=== PATIENT | female | born 1975 | race Caucasian/White ===

== ENCOUNTER 2016-12-09 10:28 | Emergency (ER) | payer OTHER ==
[~2016-12-09] VITALS: Ht 175.3 cm; Wt 90.0 kg
[2016-12-09 10:30] VITALS: BP 136/81; PULSE 83; RESP 16; TEMP 98.3; O2SAT 100
[2016-12-09] MEDS ORDERED: CLAR10CA3 PO (10:45)
[2016-12-09] MEDS ORDERED: NEXI20CA PO (10:45)
--- NOTE | 2016-12-09 10:58 | PD ---
HPI Chief Complaint: Syncope/Near-Syncope Time Seen by Provider: 10:54 Travel History International Travel<30 days: No Contact w/Intl Traveler<30days: No Traveled to known affect area: No History of Present Illness HPI Patient presents with complaints of a near syncopal episode this morning after eating breakfast. Reports a long history of near syncope and syncope with negative evaluations in the past. Reports that most if not all of these episodes have occurred secondary to hypoglycemia. Patient does report a family history and personal history of hypoglycemia. Reports mild nausea without vomiting. Denies any chest pain or palpitations. Denies any shortness of breath urinary or bowel symptoms. Eyes . PFSH Past Medical History Diminished Hearing: No GERD: Yes Tetanus Vaccination: Unknown ?: Not LMP: 12/07/2016 Past Surgical History Other Surgery: Yes (LEFT SX) Social History Alcohol Use: Yes (RARE) Tobacco Use: No Substance Use: No Allergies-Medications (Allergen,Severity, Reaction): Coded Allergies: Penicillin (Verified Allergy, Intermediate, HIVES, 12/09/16) Reported Meds & Prescriptions Reported Meds & Active Scripts Active Reported Claritin (Loratadine) 10 Mg Cap 10 Mg PO DAILY Nexium (Esomeprazole DR) 20 Mg Capdr 20 Mg PO DAILY Review of Systems General / Constitutional: No: Fever Eyes: No: Visual changes HENT: No: Headaches Cardiovascular: No: Chest Pain or Discomfort Respiratory: No: Shortness of Breath Gastrointestinal: No: Abdominal Pain Genitourinary: No: Dysuria Musculoskeletal: No: Pain Skin: No Rash Neurologic: Positive: Dizziness Psychiatric: No: Depression Endocrine: No: Polydipsia Hematologic/Lymphatic: No: Easy Bruising Physical Exam Narrative GENERAL: Well-nourished, well-developed patient. SKIN: Focused skin assessment warm/dry. HEAD: Normocephalic. EYES: No scleral icterus. No injection or drainage. NECK: Supple, trachea midline. No JVD or lymphadenopathy. CARDIOVASCULAR: Regular rate and rhythm without murmurs, gallops, or rubs. RESPIRATORY: Breath sounds equal bilaterally. No accessory muscle use. GASTROINTESTINAL: Abdomen soft, non-tender, nondistended. MUSCULOSKELETAL: No cyanosis, or edema. BACK: Nontender without obvious deformity. No CVA tenderness. Data Data Last Documented VS Vital Signs Date Time Temp Pulse Resp B/P Pulse Ox O2 Delivery O2 Flow Rate FiO2 7/9/17 11:06 16 100 Room Air 12/09/16 11:06 88 130/66 82 142/69 83 136/69 12/09/16 10:30 98.3 Orders Electrocardiogram (12/09/16 10:54) Complete Blood Count With Diff (12/09/16 10:54) Comprehensive Metabolic Panel (12/09/16 10:54) Urinalysis - C+S If Indicated (12/09/16 10:54) Ct Brain W/O Iv Contrast(Rout) (12/09/16 10:54) Blood Glucose (12/09/16 10:54) Ecg Monitoring (12/09/16 10:54) Iv Access Insert/Monitor (12/09/16 10:54) Oximetry (12/09/16 10:54) Meclizine (Antivert) (12/09/16 11:00) Sodium Chloride 0.9% Flush (Ns Flush) (12/09/16 11:00) Orthostatic Vital Signs (12/09/16 10:54) Ondansetron Inj (Zofran Inj) (12/09/16 11:00) Sodium Chlor 0.9% 1000 Ml Inj (Ns 1000 M (12/09/16 11:00) Labs Laboratory Tests Test 12/09/16 10:50 White Blood Count 8.2 TH/MM3 Red Blood Count 4.17 MIL/MM3 Hemoglobin 12.8 GM/DL Hematocrit 38.2 % Mean Corpuscular Volume 91.5 FL Mean Corpuscular Hemoglobin 30.7 PG Mean Corpuscular Hemoglobin 33.6 % Concent Red Cell Distribution Width 12.6 % Platelet Count 291 TH/MM3 Mean Platelet Volume 7.5 FL Neutrophils (%) (Auto) 73.2 % Lymphocytes (%) (Auto) 17.6 % Monocytes (%) (Auto) 5.1 % Eosinophils (%) (Auto) 0.6 % Basophils (%) (Auto) 3.5 % Neutrophils # (Auto) 6.1 TH/MM3 Lymphocytes # (Auto) 1.4 TH/MM3 Monocytes # (Auto) 0.4 TH/MM3 Eosinophils # (Auto) 0.0 TH/MM3 Basophils # (Auto) 0.3 TH/MM3 CBC Comment DIFF FINAL Differential Comment Urine Collection Type CLEAN CATCH Urine Color STRAW Urine Turbidity CLEAR Urine pH 5.5 Urine Specific Pepin 1.004 Urine Protein NEG mg/dL Urine Glucose (UA) NEG mg/dL Urine Ketones NEG mg/dL Urine Occult Blood SMALL Urine Nitrite NEG Urine Bilirubin NEG Urine Leukocyte Esterase NEG Urine RBC 4-9 /hpf Urine Squamous Epithelial 0-5 /hpf Cells Microscopic Urinalysis Comment CULT NOT INDICATED Urine Collection Time 10:50 Sodium Level 141 MEQ/L Potassium Level 3.8 MEQ/L Chloride Level 107 MEQ/L Carbon Dioxide Level 26.6 MEQ/L Anion Gap 7 MEQ/L Blood Urea Nitrogen 16 MG/DL Creatinine 0.79 MG/DL Estimat Glomerular Filtration 79 ML/MIN Rate Random Glucose 98 MG/DL Calcium Level 8.5 MG/DL Total Bilirubin 0.3 MG/DL Aspartate Amino Transf 21 U/L (AST/SGOT) Alanine Aminotransferase 27 U/L (ALT/SGPT) Alkaline Phosphatase 81 U/L Total Protein 7.6 GM/DL Albumin 3.8 GM/DL [facility] Medical Decision Making Medical Screen Exam Complete: Yes Emergency Medical Condition: Yes Differential Diagnosis Syncope, near-syncope, atypical migraines, vertigo, dizziness, hypoglycemia Narrative Course Assessment and plan discussed with patient and roommate at bedside. Random blood sugar on arrival 125. EKG reveals sinus rhythm rate of 75. Orthostatics within normal limits. Last [address] 12/09/16 1054 Signed Impressions: Service Date/Time: Friday, December 09, 2016 11:19 - CONCLUSION: Normal examination. Edgar Ascencio MD Diagnosis Primary Impression: Near syncope Patient Instructions: General Instructions Additional Instructions: Encouraged rest and fluids. Encouraged frequent small meals. Encouraged to follow-up with PCP for further workup. Return to the emergency room with any change in symptoms. Anti-emetic as needed Med/Other Pt SpecificInfo: Prescription(s) given Scripts Promethazine (Phenergan)25 Mg Awlurr41.5 Mg PO Q6H PRN (NAUSEA OR VOMITING) #10 TAB Ref 0 Prov:Nolan Hernandez MD 12/09/16 Disposition: 01 DISCHARGE HOME Condition: Good Nolan Hernandez MD Dec 09, 2016 10:58
[2016-12-09] MEDS ORDERED: MECLIZINE HCL 25 MG TAB PO ONE (11:00)
[2016-12-09] MEDS ORDERED: SODIUM CHLOR 0.9% 1000 ML INJ 1,000 ML IV ONE (11:00)
[2016-12-09] MEDS ORDERED: ONDANSETRON HCL 4 MG/2 ML VIAL IV PUSH ONE (11:00)
[2016-12-09] MEDS ORDERED: SODIUM CHLORIDE 0.9% FLUSH 10 ML FLUSH IVF PRN (11:00)
[2016-12-09 11:03] LABS: AUTOMATED NEUTROPHIL # 6.1 TH/MM3 (1.8-7.7); BASOPHIL # 0.3 TH/MM3 (0-0.2); BASOPHIL % 3.5 % (0.0-2.0); EOSINOPHIL % 0.6 % (0.0-4.0); HEMATOCRIT 38.2 % (35.0-46.0); HEMO FLAGS DIFF FINAL; LYMPH % 17.6 % (9.0-44.0); LYMPHOCYTE # 1.4 TH/MM3 (1.0-4.8); MEAN CELL VOLUME 91.5 FL (80.0-100.0); MEAN CORPUSCULAR HEMOGLOBIN 30.7 PG (27.0-34.0); MEAN CORPUSCULAR HGB CONC 33.6 % (32.0-36.0); MONO % 5.1 % (0.0-8.0); NEUT % 73.2 % (16.0-70.0); PLATELET COUNT 291 TH/MM3 (150-450); RED BLOOD COUNT 4.17 MIL/MM3 (4.00-5.30); RED CELL DISTRIBUTION WIDTH 12.6 % (11.6-17.2); WHITE BLOOD COUNT 8.2 TH/MM3 (4.0-11.0)
[2016-12-09 11:04] LABS: BLOOD, URINE SMALL (NEG); GLUCOSE,URINE NEG (NEG); KETONE, URINE NEG (NEG); NITRITE,URINE NEG (NEG); PH, URINE 5.5 (5.0-8.5)
[2016-12-09 11:06] VITALS: BP_SYST 130; BP_SYST 136; BP_SYST 142; BP_DIAS 66; BP_DIAS 69; RESP 16; RESP 17; O2SAT 100
[2016-12-09 11:13] LABS: COMMENT (UR) CULT NOT INDICATED; CULTURE IF INDICATED CULT NOT INDICATED; METHOD OF COLLECTION CLEAN CATCH; SQUAMOUS EPITHELIAL CELL URINE 0-5 /hpf (0-5); URINE COLOR STRAW (YELLW/STRAW)
[2016-12-09 11:14] LABS: CHLORIDE 107 MEQ/L (98-107); POTASSIUM 3.8 MEQ/L (3.5-5.1); SODIUM (NA) 141 MEQ/L (136-145)
[2016-12-09 11:18] LABS: ANION GAP 7 MEQ/L (5-15); BICARBONATE 26.6 MEQ/L (21.0-32.0); BLOOD UREA NITROGEN 16 MG/DL (7-18)
[2016-12-09 11:21] LABS: ALT (GPT) 27 U/L (10-53); AST (GOT) 21 U/L (15-37); GLOMERULAR FILTRATION RATE 79 ML/MIN (>89)
[2016-12-09 11:22] LABS: TOTAL BILIRUBIN ADULT 0.3 MG/DL (0.2-1.0)
[2016-12-09 11:24] LABS: ALKALINE PHOSPHATASE 81 U/L (45-117)
--- NOTE | 2016-12-09 11:37 | RADRPT ---
EXAM DATE/TIME: 12/09/2016 11:19 [place] COMPARISON: No previous studies available for comparison. INDICATIONS : Dizziness. RADIATION DOSE: 61.51 CTDIvol (mGy) MEDICAL HISTORY : Gastroesophageal reflux disease. SURGICAL HISTORY : None. ENCOUNTER: Initial ACUITY: 3 weeks PAIN SCALE: 0/10 LOCATION: cranial TECHNIQUE: Multiple contiguous axial images were obtained of the head. Using automated exposure control and adj ustment of the mA and/or kV according to patient size, radiation dose was kept as low as reasonably a chievable to obtain optimal diagnostic quality images. DICOM format image data is available electro nically for review and comparison. FINDINGS: CEREBRUM: The ventricles are normal for age. No evidence of midline shift, mass lesion, hemorrhage or acute in farction. No extra-axial fluid collections are seen. POSTERIOR FOSSA: The cerebellum and brainstem are intact. The 4th ventricle is midline. The cerebellopontine angle i s unremarkable. EXTRACRANIAL: The visualized portion of the orbits is intact. SKULL: The calvaria is intact. No evidence of skull fracture. CONCLUSION: Normal examination. Edgar Ascencio MD on December 09, 2016 at 11:36 Board Certified Radiologist. This report was verified electronically.
[2016-12-09] MEDS ORDERED: PROM25TA10 PO (11:55)
[2016-12-09 11:57] VITALS: BP 135/66
--- NOTE | 2016-12-09 12:13 | EKG ---
Date Performed: 12/09/2016 Time Performed: 11:13:19 PTAGE: 41 years EKG: Sinus rhythm NORMAL ECG NO PREVIOUS TRACING DOCTOR: Anthony Rendon Interpretating Date/Time 12/09/2016 12:11:18
== END 2016-12-09 12:10 | disposition home or self-care (01) ==
LOC: PHED 10:28
DX: R55 Syncope and collapse (principal); R11.0 Nausea; Z87.19 Personal history of other diseases of the digestive system
CPT/HCPCS: 70450; 80053; 81001; 85025; 93005; 96361; 96374; 99285; J2405; J7030